=== PATIENT | female | born 1965 | race Caucasian/White ===

== ENCOUNTER 2016-07-22 01:33 | Outpatient (CLI) | payer OTHER, MEDICARE | END 2016-07-22 01:34 | disposition short-term general hospital (02) | LOC: EMS 01:33 | PROVIDERS: ATTEND Surgery | DX: R06.02 Shortness of breath (principal) | CPT/HCPCS: A0425; A0427 ==

== ENCOUNTER 2016-09-16 12:48 | Outpatient (CLI) | payer OTHER, MEDICARE | END 2016-09-16 12:49 | disposition home or self-care (01) | LOC: DI 12:48 | PROVIDERS: ATTEND Internal Medicine | DX: I50.9 Heart failure, unspecified (principal); E87.70 Fluid overload, unspecified; I51.7 Cardiomegaly | CPT/HCPCS: 93306 ==

== ENCOUNTER 2019-01-20 13:49 | Outpatient (CLI) | payer MEDICARE, MEDICAID ==
--- NOTE | 2019-01-21 11:26 | XRAY Report ---
Reason: ASPIRATION Procedure Date: 01/20/2019 Accession Number: [id number] / [id number] Procedure: FL - Modified Barium Swallow W/SP CPT Code: Final Report FULL RESULT: EXAM: MODIFIED BARIUM SWALLOW EXAM DATE: 01/20/2019 03:40 PM. CLINICAL HISTORY: Aspiration. COMPARISON: None. TECHNIQUE: Under the direction of speech pathology, patient swallowed various consistencies of barium under lateral fluoroscopic observation of the neck. Fluoroscopy Time: 48 seconds. Number of Images: 81. FINDINGS: Swallowing Mechanism: Normal oral phase and delayed swallowing reflex. Airway Protection: Normal epiglottic motion. No episodes of tracheal penetration or aspiration with all consistencies of barium. Pharynx: Normal. No significant vallecular or piriform sinus contrast pooling. Other: None. IMPRESSION: Delayed initiation with no aspiration. RADIA
== END 2019-01-20 13:50 | disposition home or self-care (01) ==
LOC: DI 13:49
PROVIDERS: ATTEND Internal Medicine
DX: R09.89 Other specified symptoms and signs involving the circulatory and respiratory systems (principal); R13.10 Dysphagia, unspecified
CPT/HCPCS: 74230

== ENCOUNTER 2019-05-26 14:18 | Outpatient (CLI) | payer MEDICARE, MEDICAID | END 2019-05-26 14:19 | disposition home or self-care (01) | LOC: COV 14:18 | PROVIDERS: ATTEND Family Medicine | DX: R05 Cough (principal); R50.9 Fever, unspecified | CPT/HCPCS: 81599 ==

== ENCOUNTER 2022-03-22 07:05 | Outpatient (CLI) | payer MEDICARE, MEDICAID | END 2022-03-22 07:06 | disposition EMS.NT | LOC: EMS 07:05 | DX: R06.00 Dyspnea, unspecified (principal); F41.9 Anxiety disorder, unspecified ==

== ENCOUNTER 2022-04-03 08:59 | Outpatient (CLI) | payer MEDICARE, MEDICAID ==
[2022-04-03 11:56] LABS: BASOPHILS % (AUTO) 0.5 %; EOSINOPHILS # (AUTO) 0.2 10^3/uL (0.0-0.7); EOSINOPHILS % (AUTO) 2.9 %; HCT - HEMATOCRIT 45.9 % (37.0-47.0); HGB - HEMOGLOBIN 14.3 g/dL (12.0-16.0); LYMPHOCYTES # (AUTO) 3.7 10^3/uL (1.5-3.5); LYMPHOCYTES % (AUTO) 44.6 %; MEAN CORPUSCULAR HGB CONC 31.2 g/dL (32.0-36.0); MEAN CORPUSCULAR VOLUME 86.6 fL (81.0-99.0); MONOCYTES # (AUTO) 0.3 10^3/uL (0.0-1.0); MONOCYTES % (AUTO) 4.1 %; NEUTROPHILS % (AUTO) 47.7 %; PLT - PLATELET COUNT 209 10^3/uL (130-450); RED CELL DISTRIBUTION WIDTH 13.2 % (12.0-15.0); WHITE BLOOD COUNT 8.3 x10^3/uL (4.8-10.8)
[2022-04-03 12:14] LABS: ESTIMATED AVERAGE GLUCOSE 235 mg/dL (70-100); HEMOGLOBIN A1c% 9.8 % (4.27-6.07)
[2022-04-03 12:35] LABS: ALBUMIN 5.1 g/dL (3.2-5.5); ALBUMIN/GLOBULIN RATIO 1.6 (1.0-2.2); ALKALINE PHOSPHATASE 62 IU/L (42-121); ALT ALANINE AMINOTRANSFERASE 24 IU/L (10-60); AST ASPARTATE AMINOTRANSFERASE 26 IU/L (10-42); BILIRUBIN,TOTAL 0.6 mg/dL (0.2-1.0); BUN - BLOOD UREA NITROGEN 19 mg/dL (6-20); CARBON DIOXIDE - CO2 26 mmol/L (21-32); CHLORIDE 98 mmol/L (101-111); CHOL/HDL RATIO 3.4 (<4.4); CHOLESTEROL 231 mg/dL; CREATININE 0.8 mg/dL (0.4-1.0); GFR - MDRD 74 (>89); GLUCOSE 196 mg/dL (70-100); HDL CHOLESTEROL 67 mg/dL; LDL CHOLESTEROL,CALCULATED 109 mg/dL; LDL/HDL RATIO 1.6 (<4.4); POTASSIUM 4.4 mmol/L (3.5-5.0); SODIUM 135 mmol/L (135-145); TOTAL PROTEIN 8.3 g/dL (6.7-8.2); TRIGLYCERIDES 276 mg/dL; VLDL CHOLESTEROL 55 mg/dL
== END 2022-04-03 09:00 | disposition home or self-care (01) ==
LOC: LAB.N 08:59
PROVIDERS: ATTEND Nurse Practitioner
DX: E11.9 Type 2 diabetes mellitus without complications (principal); E78.5 Hyperlipidemia, unspecified; I10 Essential (primary) hypertension
CPT/HCPCS: 36415; 80053; 80061; 83036; 83721; 85025

== ENCOUNTER 2022-04-25 16:17 | Outpatient (CLI) | payer MEDICARE, MEDICAID | END 2022-04-25 16:18 | disposition home or self-care (01) | LOC: LAB.N 16:17 | PROVIDERS: ATTEND Surgery | DX: Z01.812 Encounter for preprocedural laboratory examination (principal); K81.1 Chronic cholecystitis; E11.9 Type 2 diabetes mellitus without complications; Z20.822 Contact with and (suspected) exposure to COVID-19 ==

== ENCOUNTER 2022-04-26 06:16 | Day surgery (SDC) | payer MEDICARE, MEDICAID ==
[~2022-04-26 06:16] MED LIST: CEFAZOLIN 2G/50ML 0.9% NS 2 GM/50 ML BAG IV ONE
[2022-04-26] MEDS ORDERED: LACTATED RINGERS 1,000 ML IV ONE ×2 (06:30→09:17)
[2022-04-26] MEDS ORDERED: BUPIVACAINE 0.25% PF 30 ML VIAL ONE (06:53)
[2022-04-26] MEDS ORDERED: fentaNYL 100 MCG/2 ML VIAL ONE ×2 (07:01→10:02)
[2022-04-26] MEDS ORDERED: MIDAZOLAM 2 MG/2 ML VIAL ONE (07:01)
[2022-04-26] MEDS ORDERED: ROCURONIUM 50 MG/5 ML VIAL ONE (07:01)
[2022-04-26] MEDS ORDERED: PROPOFOL 200 MG/20 ML VIAL IVP ONE (07:01)
[2022-04-26] MEDS ORDERED: HYDROmorphone 0.5 MG/0.5 ML SYRINGE IVP PRN (07:25)
[2022-04-26] MEDS ORDERED: ONDANSETRON 4 MG/2 ML VIAL IVP PRN ×2 (07:25→09:26)
[2022-04-26] MEDS ORDERED: NALOXONE 0.4 MG/ML VIAL IVP PRN (07:25)
[2022-04-26] MEDS ORDERED: ATROPINE ABBOJECT 1 MG/10 ML SYRINGE IVP PRN (07:25)
[2022-04-26] MEDS ORDERED: INSULIN REGULAR HUMAN 300 UNIT/3 ML VIAL SUBQ ONE (07:26)
--- NOTE | 2022-04-26 07:32 | ANESTHESIA ---
Pre-Anesthesia VS, & Labs - Diagnosis chronic cholecystitis - Procedure lap yohana Vital Signs: Temp Pulse Resp BP Pulse Ox O2 Flow Rate 36.5 C 68 12 104/65 97 0 04/26/22 06:46 04/26/22 06:46 04/26/22 06:46 04/26/22 06:46 04/26/22 06:46 04/26/22 06:46 Height: 5 ft 7 in Weight (kg): 72.3 kg Body Mass Index: 25.0 BMI Classification: Overweight - NPO >8 hours - Is Patient ?: No - Lab Results Current Lab Results: Laboratory Tests 04/26/22 07:16: POC Whole Bld Glucose 330 H Lab results reviewed: Yes Home Medications and Allergies Home Medications: Ambulatory Orders Acetaminophen [Tylenol] 650 mg PO Q6H PRN 04/20/22 Fenofibrate 160 mg PO DAILY 04/20/22 Furosemide [Lasix] 20 mg PO DAILY 04/20/22 Loratadine [Allergy Relief] 10 mg PO DAILY 04/20/22 Losartan [Cozaar] 50 mg PO DAILY 04/20/22 Metoprolol Succinate [Toprol Xl] 25 mg PO DAILY 04/20/22 Multivitamin 1 each PO DAILY 04/20/22 Potassium Chloride 20 meq PO DAILY 04/20/22 Sertraline HCl 200 mg PO DAILY 04/20/22 Simvastatin [Zocor] 20 mg PO DAILY 04/20/22 Zzzquil Melatonin Gummies 1 tab PO QPM 04/20/22 hydrOXYzine HCL [Hydroxyzine HCl] 25 mg PO BID PRN 04/20/22 metFORMIN [Glucophage] 500 mg PO BIDWM 04/20/22 Active Medications Atropine Sulfate (Atropine Abboject 1 Mg/10 Ml Syringe) 0.5 mg IVP Q5M PRN PRN Reason: Bradycardia Stop: 04/27/22 07:25 Fentanyl (Fentanyl 100 Mcg/2 Ml Vial) 25 - 50 mcg IVP Q5M PRN PRN Reason: BREAKTHROUGH PAIN (2nd Choice) Stop: 04/27/22 07:25 Hydromorphone HCl (Hydromorphone 0.5 Mg/0.5 Ml Syringe) 0.2 - 0.6 mg IVP Q5M PRN PRN Reason: PAIN (First Choice) Stop: 04/27/22 07:25 Lactated Ringer's (Lr) 1,000 mls @ 100 mls/hr IV .Q10H KRISTOPHER Stop: 04/26/22 17:59 Insulin Human Regular (Insulin Regular Human 300 Unit/3 Ml Vial) 5 unit SUBQ ONCE ONE Stop: 04/26/22 07:27 Naloxone HCl (Naloxone 0.4 Mg/Ml Vial) 0.1 mg IVP Q2M PRN PRN Reason: RESP RATE <8 Stop: 04/27/22 07:25 Ondansetron HCl (Ondansetron 4 Mg/2 Ml Vial) 4 mg IVP ONCE PRN PRN Reason: N/V (First Choice) Stop: 04/27/22 07:25 Acetaminophen [Tylenol] 650 mg PO Q6H PRN 04/20/22 Fenofibrate 160 mg PO DAILY 04/20/22 Furosemide [Lasix] 20 mg PO DAILY 04/20/22 Loratadine [Allergy Relief] 10 mg PO DAILY 04/20/22 Losartan [Cozaar] 50 mg PO DAILY 04/20/22 Metoprolol Succinate [Toprol Xl] 25 mg PO DAILY 04/20/22 Multivitamin 1 each PO DAILY 04/20/22 Potassium Chloride 20 meq PO DAILY 04/20/22 Sertraline HCl 200 mg PO DAILY 04/20/22 Simvastatin [Zocor] 20 mg PO DAILY 04/20/22 Zzzquil Melatonin Gummies 1 tab PO QPM 04/20/22 hydrOXYzine HCL [Hydroxyzine HCl] 25 mg PO BID PRN 04/20/22 metFORMIN [Glucophage] 500 mg PO BIDWM 04/20/22 Allergies/Adverse Reactions: Allergies Allergy/AdvReac Type Severity Reaction Status Date / Time morphine Allergy Intermediate Hives Verified 05/25/15 14:38 Penicillins Allergy Intermediate Hives Verified 05/25/15 14:38 gluten Allergy Unknown Verified 04/20/22 12:38 hydrocodone bitartrate * AdvReac Severe Nausea Verified 05/25/15 14:38 [From Vicodin] Anes History & Medical History - Anesthetic History Anesthesia Complications: reports: No previous complications - Medical History Cardiovascular: reports: Hypertension, High cholesterol Pulmonary: reports: None Gastrointestinal: reports: None Urinary: reports: None Neuro: reports: 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) Musculoskeletal: reports: Osteoarthritis, Chronic back pain Endocrine/Autoimmune: reports: Type 2 diabetes (blood glucose this am 330, treated with 5 units insulin sq) Skin: reports: None Smoking Status: Current every day smoker Psychosocial: reports: Depression, Anxiety History of Cancer?: No - Surgical History Gynecologic: reports: Dilation and currettage, Tubal ligation Exam General: Alert, Oriented x3, Cooperative, No acute distress Dental: Dentures full Upper, Dentures full Lower, Other (painful mouth sores where dentures sit) Mouth Opening: Greater than 4 Fingerbreadths Neck Mobility: Normal Mallampati classification: II Thyromental Distance: 4-6 cm Mental/Cognitive Status: Alert/Oriented X3, Normal for patient Plan Anesthesia Type: General Consent for Procedure(s) Verified and Reviewed: Yes Code Status: Attempt Resuscitation ASA classification: 3-Severe systemic disease Is this case an emergency?: No
[2022-04-26] MEDS ORDERED: LACTATED RINGERS 1,000 ML IV SCH (08:00)
[2022-04-26] MEDS ORDERED: BUPIVACAINE 0.25% PF 30 ML VIAL SUBQ ONE (08:13)
[2022-04-26] MEDS ORDERED: ACETAMINOPHEN 1,000 MG/100 ML 1,000 MG/100 ML BAG IV ONE (08:36)
[2022-04-26] MEDS ORDERED: ONDANSETRON 4 MG/2 ML VIAL ONE ×2 (08:41→09:54)
[2022-04-26] MEDS ORDERED: SUGAMMADEX 200 MG/2 ML VIAL IVP ONE (08:56)
[2022-04-26] MEDS ORDERED: KETOROLAC 15 MG/ML VIAL ONE (09:36)
[2022-04-26] MEDS ORDERED: HYDROmorphone 0.5 MG/0.5 ML SYRINGE ONE (09:36)
[2022-04-26] MEDS ORDERED: KETOROLAC 15 MG/ML VIAL IVP PRN (09:37)
--- NOTE | 2022-04-26 09:40 | OPERATIVE REPORT ---
Operative Report - General Procedure Date: 04/26/22 Planned Procedure: lap yohana Pre-Op Diagnosis: chronic cholecystitis Procedure Performed: lap yohana Post Op Diagnosis: chronic cholecystitis - Procedure Note Primary Surgeon: nunu maher Anesthesia Technique: General ET tube, Local Pathology: gallbladder Estimated Blood Loss (mL): 2 Drain/Tube Type: Other (none) Indications: chronic ruq pain and gallstones Findings: obstructing stones in the cystic duct Complications: none - Other Other Information/Narrative: The patient was properly identified, brought to the operating room and placed in supine position. Sequential compression devices were placed. General endotracheal anesthesia was induced. The patient was prepped and draped in a sterile fashion and given preoperative antibiotics. Local anesthetic was given to incision areas. An incision was made in the periumbilical area. Dissection proceeded down to fascia. The fascia was incised lifted upwards and abdomen entered with a Veress needle. CO2 was insufflated to a pressure of 15. An 11 mm trocar followed by a 30 degree scope was placed. There was no evidence of injury from Veress needle or trocar placement. Under direct vision 2 5 mm trochars were placed in the right upper quadrant and an 11 mm trocar was placed in the epigastrium. Body of the gallbladder was retracted anterior. Lateral attachments were partially taken down further mobilizing the gallbladder more anterior and away from the duodenum. The infundibulum of the gallbladder was then retracted right lateral and caudad. With minimal use of cautery a large bare cystic plate area or window was carefully created. The cystic duct was inspected from right lateral and left lateral positions. [] The cystic duct was then clipped at the gallbladder and 3 times slightly proximal and sharply divided. The cystic artery was clipped at the gallbladder and then 2 times slightly proximal and sharply divided. The gallbladder was mobilized off from the bed of the liver with hook cautery. The gallbladder was brought out through the epigastric trocar site. Hemostasis was assured. Trochars were removed under direct vision. Fascia at the larger trocar sites was closed with [id number] are running 0 Vicryl suture. Subcutaneous tissue was irrigated and skin closed with interrupted 4-0 Monocryl. Dressings were applied. Patient tolerated the procedure well was awakened and brought to recovery in good condition.
[2022-04-26] MEDS: fentaNYL 100 MCG/2 ML VIAL IVP PRN ×2 (10:03→10:10)
[2022-04-26 10:57] VITALS: BP 125/71
--- NOTE | 2022-04-26 11:43 | ANESTHESIA POST OP EVALUATION ---
Anesthesia Post Eval - Post Anesthesia Eval Vitals: Last Vital Signs Temp 36.4 C L 04/26/22 10:56 Pulse 75 04/26/22 10:56 Resp 12 04/26/22 10:56 BP 125/71 04/26/22 10:56 Pulse Ox 99 04/26/22 10:56 O2 Flow Rate 0 04/26/22 06:46 CV Function Including HR & BP: Stable Pain Control: Satisfactory Nausea & Vomiting: Negative Mental Status: Baseline Respiratory Status: Airway Patent Hydration Status: Satisfactory Anesthesia Complications: None
== END 2022-04-26 06:17 | disposition home or self-care (01) ==
LOC: SDS 06:16
PROVIDERS: ATTEND Surgery
PROC: 0FT44ZZ Resection of Gallbladder, Percutaneous Endoscopic Approach (ICD-10-PCS; principal; 2022-04-26 07:30)
DX: K80.11 Calculus of gallbladder with chronic cholecystitis with obstruction (principal); E11.9 Type 2 diabetes mellitus without complications; F41.1 Generalized anxiety disorder; F17.200 Nicotine dependence, unspecified, uncomplicated
CPT/HCPCS: 47562; J0131; J0690; J1170; J1815; J7120

== ENCOUNTER 2022-09-10 14:39 | Outpatient (CLI) | payer MEDICARE, MEDICAID ==
[2022-09-10 19:20] LABS: BASOPHILS % (AUTO) 0.4 %; EOSINOPHILS # (AUTO) 0.1 10^3/uL (0.0-0.7); EOSINOPHILS % (AUTO) 1.2 %; HCT - HEMATOCRIT 44.7 % (37.0-47.0); HGB - HEMOGLOBIN 14.4 g/dL (12.0-16.0); LYMPHOCYTES # (AUTO) 4.3 10^3/uL (1.5-3.5); LYMPHOCYTES % (AUTO) 41.9 %; MEAN CORPUSCULAR HEMOGLOBIN 26.9 pg (27.0-31.0); MEAN CORPUSCULAR HGB CONC 32.2 g/dL (32.0-36.0); MEAN CORPUSCULAR VOLUME 83.6 fL (81.0-99.0); MEAN PLATELET VOLUME 10.6 fL (7.9-10.8); MONOCYTES # (AUTO) 0.4 10^3/uL (0.0-1.0); NEUTROPHILS # (AUTO) 5.3 10^3/uL (1.5-6.6); PLT - PLATELET COUNT 221 10^3/uL (130-450); RED BLOOD COUNT 5.35 10^6/uL (4.20-5.40); RED CELL DISTRIBUTION WIDTH 14.5 % (12.0-15.0); WHITE BLOOD COUNT 10.3 x10^3/uL (4.8-10.8)
[2022-09-10 19:35] LABS: ALBUMIN 4.8 g/dL (3.2-5.5); ALBUMIN/GLOBULIN RATIO 1.3 (1.0-2.2); BILIRUBIN,TOTAL 0.5 mg/dL (0.2-1.0); CALCIUM 9.9 mg/dL (8.5-10.3); POTASSIUM 4.3 mmol/L (3.5-5.0); TOTAL PROTEIN 8.5 g/dL (6.7-8.2)
[2022-09-10 21:34] LABS: ESTIMATED AVERAGE GLUCOSE 223 mg/dL (70-100); HEMOGLOBIN A1c% 9.4 % (4.27-6.07)
== END 2022-09-10 14:40 | disposition home or self-care (01) ==
LOC: LAB.N 14:39
PROVIDERS: ATTEND Nurse Practitioner
DX: E11.9 Type 2 diabetes mellitus without complications (principal)
CPT/HCPCS: 36415; 80053; 82043; 82570; 83036; 85025

== ENCOUNTER 2022-11-15 06:50 | Emergency (ER) | payer MEDICARE, MEDICAID ==
--- NOTE | 2022-11-15 07:27 | ED Physician Documentation ---
PD HPI URI - Stated complaint Stated Complaint: SOA, MIGHT BE C+ - Chief complaint Chief Complaint: Resp - History obtained from History obtained from: Patient - History of Present Illness Timing - onset: How many days ago (3-4) Timing duration: Days (3-4) Timing details: Abrupt onset, Still present Contributing factors: Sick contact (she visited with her son's family about 5-6 days ago and they had slight illness. Subsequently tested positive for COVID and they called her to inform her.). No: Travel (her son's family lives just in [place], so no prolonged travel.), COPD / asthma Similar symptoms before: Has not had sx before Review of Systems Constitutional: reports: Fever, Chills, Myalgias, Fatigue Nose: reports: Congestion Throat: denies: Sore throat Cardiac: reports: Chest pain / pressure (with coughing, more to right side). denies: Pedal edema Respiratory: reports: Dyspnea, Cough. denies: Hemoptysis, Wheezing GI: reports: Nausea. denies: Abdominal Pain, Vomiting, Diarrhea Neurologic: reports: Generalized weakness. 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) Endocrine/Autoimmune: Type 2 diabetes (blood glucose this am 330, treated with 5 units insulin sq) GI: None : None HEENT: Chronic vision loss, Chronic sinusitis Psych: Anxiety, Panic attacks Musculoskeletal: Osteoarthritis, Chronic back pain Derm: None - Past Surgical History /[employer] EX[employer]OR: Dilation and currettage, Tubal ligation - Present Medications Home Medications: Ambulatory Orders Medication Instructions Recorded Confirmed Acetaminophen [Tylenol] 650 mg PO Q6H PRN 04/20/22 11/15/22 Fenofibrate 160 mg PO DAILY 04/20/22 11/15/22 Furosemide [Lasix] 20 mg PO DAILY 04/20/22 11/15/22 Loratadine [Allergy Relief] 10 mg PO DAILY 04/20/22 04/20/22 Losartan [Cozaar] 50 mg PO DAILY 04/20/22 11/15/22 Metoprolol Succinate [Toprol Xl] 25 mg PO DAILY 04/20/22 11/15/22 Multivitamin 1 each PO DAILY 04/20/22 11/15/22 Potassium Chloride 20 meq PO DAILY 04/20/22 11/15/22 Sertraline HCl 200 mg PO DAILY 04/20/22 11/15/22 metFORMIN [Glucophage] 1,000 mg PO BIDWM 04/20/22 11/15/22 Albuterol Sulf [Ventolin Hfa 2 - 3 puffs INH QID #1 each 11/15/22 Inhaler] Atorvastatin [Lipitor] 20 mg ORAL HS 11/15/22 11/15/22 Benzonatate [Tessalon] 100 mg PO TID PRN #20 cap 11/15/22 Fluticasone [Flonase] 1 spray IN DAILY 11/15/22 11/15/22 clonazePAM [Clonazepam] 1 mg PO BID PRN 11/15/22 11/15/22 - Allergies Allergies/Adverse Reactions: Allergies Allergy/AdvReac Type Severity Reaction Status Date / Time morphine Allergy Intermediate Hives Verified 11/15/22 07:03 Penicillins Allergy Intermediate Hives Verified 11/15/22 07:03 gluten Allergy Unknown Verified 11/15/22 07:03 hydrocodone bitartrate * AdvReac Severe Nausea Verified 11/15/22 07:03 [From Vicodin] - Social History Does the pt smoke?: Yes Smoking Status: Current every day smoker Does the pt drink ETOH?: No Does the pt have substance abuse?: No - Immunizations Immunizations are current?: No - POLST Patient has POLST: No PD ED PE NORMAL - Vitals Vital signs reviewed: Yes - General General: Alert and oriented X 3, No acute distress, Well developed/nourished - HEENT HEENT: Pharynx benign - Neck Neck: Supple, no meningeal sign, No adenopathy - Cardiac Cardiac: RRR, No murmur - Respiratory Respiratory: No respiratory distress. No: Clear bilaterally (,id exp wheezing centrally. Does have episodic spasmodic coughing with wheeze then. ) - Derm Derm: Normal color, Warm and dry - Extremities Extremities: No edema, No calf tenderness / cord - Neuro Neuro: Alert and oriented X 3, Normal speech Results - Vitals Vitals: Vital Signs - 24 hr 11/15/22 11/15/22 11/15/22 06:56 08:07 08:37 Temperature 36.2 C L 37.1 C Heart Rate 86 86 88 Respiratory 16 16 20 Rate Blood Pressure 131/70 H 118/84 H O2 Saturation 99 98 Oxygen O2 Source Room air - Labs Labs: Laboratory Tests 11/15/22 07:30 Nasal Adenovirus (PCR) NOT DETECTED Nasal B. parapertussis DNA (PCR) NOT DETECTED Nasal Coronavir 229E PCR NOT DETECTED Nasal Coronavir HKU1 PCR NOT DETECTED Nasal Coronavir NL63 PCR NOT DETECTED Nasal Coronavir OC43 PCR NOT DETECTED Nasal Enterovir/Rhinovir PCR NOT DETECTED Nasal Influenza B PCR NOT DETECTED Nasal Influenza A PCR NOT DETECTED Nasal Parainfluen 1 PCR NOT DETECTED Nasal Parainfluen 2 PCR NOT DETECTED Nasal Parainfluen 3 PCR NOT DETECTED Nasal Parainfluen 4 PCR NOT DETECTED Nasal RSV (PCR) NOT DETECTED Nasal B.pertussis DNA PCR NOT DETECTED Nasal C.pneumoniae (PCR) NOT DETECTED Ricki Human Metapneumo PCR NOT DETECTED Nasal M.pneumoniae (PCR) NOT DETECTED Nasal SARS-CoV-2 (PCR) NOT DETECTED - Rads (name of study) chest xray Relevant Findings:: Prelim report reviewed, EMP independent interpretation of test PD Medical Decision Making - ED course Complexity details: reviewed results (CXR is clear. no pneumonia. Still seems viral syndrome symptoms. Resp PCR panel is negative. Will treat symptoms with Albuterol MDI, which did help her well here as first dose. Also Tessalon. no history of COPD/asthma, so did not give steroids. ), considered differential (having URI and cough symptoms, fatigue and fevers for 3-4 days after exposure to family members couple days prior that became positive for COVID. I presume she has COVID. ), d/w patient Departure - Departure Disposition: 01 Home, Self Care Clinical Impression: Viral respiratory illness Condition: Stable Record reviewed to determine appropriate education?: Yes Instructions: ED Viral Syndrome Prescriptions: Benzonatate [Tessalon] 100 mg PO TID PRN #20 cap PRN Reason: Cough Albuterol Sulf [Ventolin Hfa Inhaler] 2 - 3 puffs INH QID #1 each Comments: Your chest x-ray is clear without any signs of fluid in the lungs or pneumonia. Your oxygenation is good. Your respiratory viral panel test has not resulted yet but given your symptoms and recent exposure to others with COVID, its most likely going to be that. We can call you with the results little later this morning when they come in. Meanwhile stay hydrated with small frequent fluids. Food as tolerated. Continue with ibuprofen for fevers and pains. Use the albuterol inhaler 2 to 3 puffs 4 times daily to help with breathing. Use it extra times if needed for shortness of breath/cough/wheeze. The benzonatate/Tessalon Perles may be helpful for cough. These can be taken in conjunction with the DayQuil as well. At this point, several days into the illness, you should be starting to feel some improvement over the next couple of days. You will likely have some fatigue and cough for several weeks. Also being several days into the illness, it have less likely to benefit from antiviral medicines that only have a modest effect anyway. I sent your prescriptions to [facility] pharmacy. Addendum: Your viral panel test just resulted actually and is negative for all the tested viruses. This includes COVID. However given your exposure to people with COVID and your symptoms, still wonder if the test is accurate. You do have some viral type illness which typically will be a 5 to 7-day type of course. Still suspicious for COVID but your COVID test is negative. Forms: PCP List Discharge Date/Time: 11/15/22 08:44
[2022-11-15] MEDS ORDERED: BENZONATATE 100 MG CAPSULE PO STA (07:46)
[2022-11-15] MEDS ORDERED: ALBUTEROL 1 PUFF INH STA (07:46)
--- NOTE | 2022-11-15 08:22 | XRAY Report ---
PROCEDURE: Chest 1 View X-Ray INDICATIONS: chest pain with coughing TECHNIQUE: One view of the chest was acquired. COMPARISON: None. FINDINGS: Surgical changes and devices: None. Lungs and pleura: No pleural effusions or pneumothorax. Lungs are clear. Mediastinum: Mediastinal contours appear normal. Heart size is normal. Bones and chest wall: No suspicious bony lesions. Overlying soft tissues appear unremarkable. IMPRESSION: No acute cardiopulmonary process. Reviewed by: Sunny Kulkarni MD on 11/15/2022 8:20 AM PDT Approved by: Sunny Kulkarni MD on 11/15/2022 8:20 AM PDT Station ID: [id number]
[2022-11-15 08:37] LABS: B. PARAPERTUSSIS- RESP PCR PAN NOT DETECTED; B. PERTUSSIS- RESP PCR PANEL NOT DETECTED; C. PNEUMONIAE- RESP PCR PANEL NOT DETECTED; CORONAVIRUS 229E-RESP PCR NOT DETECTED; CORONAVIRUS HKU1-RESP PCR NOT DETECTED; CORONAVIRUS NL63-RESP PCR NOT DETECTED; CORONAVIRUS OC43-RESP PCR NOT DETECTED; HUMAN METAPNEUMOVIRUS NOT DETECTED; INFLUENZA A- RESP PCR PANEL NOT DETECTED; INFLUENZA B - RESP PCR PANEL NOT DETECTED; M. PNEUMONIAE- RESP PCR PANEL NOT DETECTED; PARAINFLUENZA VIRUS 1 NOT DETECTED; PARAINFLUENZA VIRUS 2 NOT DETECTED; PARAINFLUENZA VIRUS 3 NOT DETECTED; PARAINFLUENZA VIRUS 4 NOT DETECTED; RHINOVIRUS/ENTEROVIRUS NOT DETECTED; RSV- RESP PCR PANEL NOT DETECTED; SARS-CoV-2 -RESP PCR PANEL NOT DETECTED
[2022-11-15 08:46] VITALS: BP 118/84; O2SAT 98
== END 2022-11-15 08:44 | disposition home or self-care (01) ==
LOC: ED 06:50
DX: B34.8 Other viral infections of unspecified site (principal); Z20.822 Contact with and (suspected) exposure to COVID-19; F17.200 Nicotine dependence, unspecified, uncomplicated
CPT/HCPCS: 71045; 87633; 94640; 94664; 99284; A9270

== ENCOUNTER 2023-04-29 09:44 | Outpatient (CLI) | payer MEDICARE, MEDICAID ==
[2023-04-29 12:02] LABS: BASOPHILS # (AUTO) 0.1 10^3/uL (0.0-0.1); BASOPHILS % (AUTO) 0.6 %; EOSINOPHILS # (AUTO) 0.2 10^3/uL (0.0-0.7); EOSINOPHILS % (AUTO) 1.7 %; HCT - HEMATOCRIT 46.4 % (37.0-47.0); HGB - HEMOGLOBIN 14.5 g/dL (12.0-16.0); LYMPHOCYTES # (AUTO) 3.3 10^3/uL (1.5-3.5); MEAN CORPUSCULAR HGB CONC 31.3 g/dL (32.0-36.0); MEAN CORPUSCULAR VOLUME 89.7 fL (81.0-99.0); MEAN PLATELET VOLUME 11.2 fL (7.9-10.8); MONOCYTES # (AUTO) 0.4 10^3/uL (0.0-1.0); MONOCYTES % (AUTO) 4.3 %; NEUTROPHILS # (AUTO) 5.5 10^3/uL (1.5-6.6); PLT - PLATELET COUNT 239 10^3/uL (130-450); RED BLOOD COUNT 5.17 10^6/uL (4.20-5.40); RED CELL DISTRIBUTION WIDTH 13.7 % (12.0-15.0); WHITE BLOOD COUNT 9.4 x10^3/uL (4.8-10.8)
[2023-04-29 12:04] LABS: SLIDE REVIEW? Indicated
[2023-04-29 12:05] LABS: PLATELET ESTIMATE, MANUAL NORMAL (130-450,000) (NORMAL); PLATELET MORPHOLOGY NORMAL APPEARANCE (NORMAL); RBC MORPHOLOGY (MULTIPLE) NORMAL APPEARANCE (NORMAL); WBC MORPHOLOGY (MULTIPLE) NORMAL APPEARANCE (NORMAL)
[2023-04-29 12:16] LABS: ALBUMIN 4.7 g/dL (3.2-5.5); ALBUMIN/GLOBULIN RATIO 1.7 (1.0-2.2); ALKALINE PHOSPHATASE 46 IU/L (42-121); ALT ALANINE AMINOTRANSFERASE 18 IU/L (10-60); AST ASPARTATE AMINOTRANSFERASE 25 IU/L (10-42); BILIRUBIN,TOTAL 0.4 mg/dL (0.2-1.0); BUN - BLOOD UREA NITROGEN 16 mg/dL (6-20); CALCIUM 9.9 mg/dL (8.5-10.3); CARBON DIOXIDE - CO2 24 mmol/L (21-32); CHLORIDE 102 mmol/L (101-111); CHOL/HDL RATIO 4.5 (<4.4); CHOLESTEROL 282 mg/dL; CREATININE 0.9 mg/dL (0.6-1.3); GFR - MDRD 65 (>89); GLUCOSE 230 mg/dL (74-104); HDL CHOLESTEROL 63 mg/dL; SODIUM 135 mmol/L (135-145); TOTAL PROTEIN 7.4 g/dL (6.4-8.9); TRIGLYCERIDES 523 mg/dL (48-352)
[2023-04-29 12:42] LABS: ESTIMATED AVERAGE GLUCOSE 237 mg/dL (70-100); HEMOGLOBIN A1c% 9.9 % (4.27-6.07)
[2023-04-29 13:13] LABS: LDL CHOLESTEROL,DIRECT 156 mg/dL (75-193); LDLD/HDL RATIO 2.5 (<4.4)
== END 2023-04-29 09:45 | disposition home or self-care (01) ==
LOC: LAB.N 09:44
PROVIDERS: ATTEND Nurse Practitioner
DX: E11.9 Type 2 diabetes mellitus without complications (principal); E78.5 Hyperlipidemia, unspecified
CPT/HCPCS: 36415; 80053; 80061; 82043; 82570; 83036; 83721; 85025

== ENCOUNTER 2023-09-13 07:10 | Outpatient (CLI) | payer MEDICARE, MEDICAID ==
[2023-09-13 12:07] LABS: BASOPHILS % (AUTO) 0.6 %; EOSINOPHILS # (AUTO) 0.2 10^3/uL (0.0-0.7); EOSINOPHILS % (AUTO) 3.1 %; HCT - HEMATOCRIT 43.4 % (37.0-47.0); HGB - HEMOGLOBIN 13.6 g/dL (12.0-16.0); LYMPHOCYTES # (AUTO) 2.9 10^3/uL (1.5-3.5); LYMPHOCYTES % (AUTO) 40.4 %; MEAN CORPUSCULAR HEMOGLOBIN 27.1 pg (27.0-31.0); MEAN CORPUSCULAR HGB CONC 31.3 g/dL (32.0-36.0); MEAN CORPUSCULAR VOLUME 86.6 fL (81.0-99.0); MEAN PLATELET VOLUME 11.2 fL (7.9-10.8); MONOCYTES # (AUTO) 0.4 10^3/uL (0.0-1.0); MONOCYTES % (AUTO) 5.5 %; NEUTROPHILS # (AUTO) 3.6 10^3/uL (1.5-6.6); PLT - PLATELET COUNT 183 10^3/uL (130-450); RED BLOOD COUNT 5.01 10^6/uL (4.20-5.40); RED CELL DISTRIBUTION WIDTH 13.4 % (12.0-15.0); WHITE BLOOD COUNT 7.1 x10^3/uL (4.8-10.8)
[2023-09-13 12:10] LABS: BILIRUBIN,URINE NEGATIVE (NEGATIVE); GLUCOSE, URINE (UA) >=1000 mg/dL (NEGATIVE); KETONES,URINE (UA) NEGATIVE (NEGATIVE); LEUKOCYTE ESTERASE, URINE NEGATIVE (NEGATIVE); NITRITE,URINE NEGATIVE (NEGATIVE); OCCULT BLOOD,URINE NEGATIVE (NEGATIVE); PROTEIN,URINE NEGATIVE (NEGATIVE); UROBILINOGEN,URINE 0.2 (NORMAL) E.U./dL (NORMAL)
[2023-09-13 12:21] LABS: CLARITY,URINE CLEAR (CLEAR)
[2023-09-13 12:33] LABS: ALBUMIN 4.7 g/dL (3.2-5.5); ALBUMIN/GLOBULIN RATIO 1.6 (1.0-2.2); ALKALINE PHOSPHATASE 86 IU/L (42-121); ALT ALANINE AMINOTRANSFERASE 16 IU/L (10-60); AMYLASE 24 U/L (28-100); AST ASPARTATE AMINOTRANSFERASE 15 IU/L (10-42); BILIRUBIN,TOTAL 0.6 mg/dL (0.2-1.0); BUN - BLOOD UREA NITROGEN 20 mg/dL (6-20); CARBON DIOXIDE - CO2 27 mmol/L (21-32); CHLORIDE 97 mmol/L (101-111); CHOL/HDL RATIO 4.5 (<4.4); CHOLESTEROL 256 mg/dL; CREATININE 0.9 mg/dL (0.6-1.3); GFR - MDRD 65 (>89); GLUCOSE 382 mg/dL (74-104); HDL CHOLESTEROL 57 mg/dL; LIPASE 21 U/L (11-82); POTASSIUM 4.2 mmol/L (3.5-4.5); SODIUM 133 mmol/L (135-145); TOTAL PROTEIN 7.7 g/dL (6.4-8.9); TRIGLYCERIDES 452 mg/dL
[2023-09-13 13:40] LABS: LDL CHOLESTEROL,DIRECT 149 mg/dL (75-193); LDLD/HDL RATIO 2.6 (<4.4)
== END 2023-09-13 07:11 | disposition home or self-care (01) ==
LOC: LAB.N 07:10
PROVIDERS: ATTEND Nurse Practitioner
DX: R10.11 Right upper quadrant pain (principal); E78.5 Hyperlipidemia, unspecified
CPT/HCPCS: 36415; 80053; 80061; 81001; 81003; 82150; 83690; 83721; 85025; 87086

== ENCOUNTER 2023-09-24 09:36 | Outpatient (CLI) | payer MEDICARE, MEDICAID ==
[2023-09-24 12:29] LABS: BASOPHILS # (AUTO) 0.1 10^3/uL (0.0-0.1); BASOPHILS % (AUTO) 0.8 %; EOSINOPHILS # (AUTO) 0.2 10^3/uL (0.0-0.7); EOSINOPHILS % (AUTO) 2.8 %; LYMPHOCYTES # (AUTO) 2.8 10^3/uL (1.5-3.5); MEAN CORPUSCULAR HEMOGLOBIN 27.5 pg (27.0-31.0); MEAN CORPUSCULAR HGB CONC 31.7 g/dL (32.0-36.0); MEAN CORPUSCULAR VOLUME 86.7 fL (81.0-99.0); MEAN PLATELET VOLUME 10.8 fL (7.9-10.8); MONOCYTES # (AUTO) 0.4 10^3/uL (0.0-1.0); MONOCYTES % (AUTO) 5.1 %; NEUTROPHILS # (AUTO) 4.1 10^3/uL (1.5-6.6); NEUTROPHILS % (AUTO) 53.9 %; PLT - PLATELET COUNT 175 10^3/uL (130-450); RED BLOOD COUNT 4.73 10^6/uL (4.20-5.40); RED CELL DISTRIBUTION WIDTH 13.4 % (12.0-15.0); WHITE BLOOD COUNT 7.6 x10^3/uL (4.8-10.8)
[2023-09-24 12:32] LABS: CREATININE,URINE 33.4 mg/dL
[2023-09-24 12:43] LABS: ALBUMIN 4.7 g/dL (3.2-5.5); ALBUMIN/GLOBULIN RATIO 1.7 (1.0-2.2); BILIRUBIN,TOTAL 0.5 mg/dL (0.2-1.0); CREATININE 0.9 mg/dL (0.6-1.3); POTASSIUM 4.2 mmol/L (3.5-4.5); TOTAL PROTEIN 7.5 g/dL (6.4-8.9)
[2023-09-24 12:48] LABS: MICROALBUMIN,URINE < 0.7 mg/dL
[2023-09-24 12:53] LABS: ESTIMATED AVERAGE GLUCOSE 321 mg/dL (70-100); HEMOGLOBIN A1c% 12.8 % (4.27-6.07)
== END 2023-09-24 09:37 | disposition home or self-care (01) ==
LOC: LAB.N 09:36
PROVIDERS: ATTEND Nurse Practitioner
DX: E11.9 Type 2 diabetes mellitus without complications (principal); R10.11 Right upper quadrant pain
CPT/HCPCS: 36415; 80053; 82043; 82570; 83036; 85025

== ENCOUNTER 2023-09-24 09:43 | Outpatient (CLI) | payer MEDICARE, MEDICAID ==
--- NOTE | 2023-09-24 16:59 | XRAY Report ---
PROCEDURE: Abdomen 1 V INDICATIONS: CONSTIPATION TECHNIQUE: One view of the abdomen acquired. COMPARISON: 09/16/2016 FINDINGS: Surgical changes and devices: Cholecystectomy clips. Bowel: Bowel gas pattern is normal. Soft tissues: No suspicious abdominal calcifications. Visualized solid organ contours appear normal in size. Bones: No suspicious bony lesions. IMPRESSION: No acute abdominal pathology. Reviewed by: Lambert Parikh MD on 09/24/2023 4:58 PM PDT Approved by: Lambert Parikh MD on 09/24/2023 4:58 PM PDT Station ID: [id number]
== END 2023-09-24 09:44 | disposition home or self-care (01) ==
LOC: DI.N 09:43
PROVIDERS: ATTEND Nurse Practitioner
DX: K59.00 Constipation, unspecified (principal); E11.9 Type 2 diabetes mellitus without complications; R10.11 Right upper quadrant pain
CPT/HCPCS: 36415; 80053; 82043; 82570; 83036; 85025